=== PATIENT | male | born 1995 | race Caucasian/White ===

== ENCOUNTER 2018-10-19 22:51 | Emergency (ER) | payer SELFPAY ==
[2018-10-19] MEDS ORDERED: Lidocaine 1% PF 5 ML VIAL ONE (23:41)
[2018-10-19] MEDS ORDERED: Adacel (T-DAP) 0.5 ML SYRINGE ONE (23:41)
[2018-10-20] MEDS ORDERED: Bacitracin Zinc 1 Packet ONE (00:02)
== END 2018-10-20 00:18 | disposition home or self-care (01) ==
LOC: ERS 22:51
DX: S61.411A Laceration without foreign body of right hand, initial encounter (principal); F17.210 Nicotine dependence, cigarettes, uncomplicated; W26.0XXA Contact with knife, initial encounter
CPT/HCPCS: 12001; 90471; 90715; 99406; J2001

== ENCOUNTER 2019-12-22 20:54 | Emergency (ER) | payer SELFPAY ==
[2019-12-22] MEDS ORDERED: Ketorolac Tromethamine 30 MG/ML VIAL ONE (22:00)
[2019-12-22] MEDS ORDERED: Lidocaine 1% w/Epinephrine 1:100K 20 ML VIAL ONE (22:00)
[2019-12-22] MEDS ORDERED: Adacel (T-DAP) 0.5 ML SYRINGE ONE (22:00)
--- NOTE | 2019-12-22 22:22 | RAD ---
LEFT FOREARM: Date: 12/22/2019 INDICATION: Injury. FINDINGS: Soft tissue disruption seen mid forearm ventrally and medially. No osseous abnormality identified. IMPRESSION: No evidence of osseous abnormality. POS: [facility]
--- NOTE | 2019-12-22 22:23 | RAD ---
RIGHT HAND 3 VIEWS: Date: 12/22/2019 HISTORY: Injury. FINDINGS: Carpals, metacarpals, and phalanges appear intact. No osseous abnormality identified. IMPRESSION: No evidence of osseous abnormality. POS: [facility]W
--- NOTE | 2019-12-22 22:23 | RAD ---
LEFT HAND 3 VIEWS: Date: 12/22/2019 HISTORY: Injury. FINDINGS: Deformity of the fifth metacarpal is consistent with old, healed fracture. Carpals, metacarpals, and phalanges otherwise appear unremarkable. No acute fracture identified. IMPRESSION: No acute findings. POS: [facility]
[2019-12-22] MEDS ORDERED: Lidocaine 1% (PF) 30 ML VIAL ONE (22:40)
== END 2019-12-22 23:49 | disposition home or self-care (01) ==
LOC: ERS 20:54
DX: S51.852A Open bite of left forearm, initial encounter (principal); S61.451A Open bite of right hand, initial encounter; S21.119A Laceration without foreign body of unspecified front wall of thorax without penetration into thoracic cavity, initial encounter; S61.411A Laceration without foreign body of right hand, initial encounter; F17.210 Nicotine dependence, cigarettes, uncomplicated; W54.0XXA Bitten by dog, initial encounter
CPT/HCPCS: 12004; 90471; 90715; J1885; J2001